=== PATIENT | male | born 1960 | race Caucasian/White ===

== ENCOUNTER 2017-11-04 10:46 | Emergency (ER) | payer MEDICAID ==
[~2017-11-04] VITALS: Ht 172.7 cm; Wt 79.0 kg
[2017-11-04] MEDS ORDERED: CYCL-1 PO (11:49)
[2017-11-04] MEDS ORDERED: ketorolac trometh inj. 60 MG/2 ML VIAL IM ONE (12:00)
[2017-11-04 13:08] VITALS: BP 136/72
== END 2017-11-04 13:10 | disposition home or self-care (01) ==
LOC: ER 10:47
DX: S76.311A Strain of muscle, fascia and tendon of the posterior muscle group at thigh level, right thigh, initial encounter (principal); F12.90 Cannabis use, unspecified, uncomplicated; Z79.899 Other long term (current) drug therapy; X50.1XXA Overexertion from prolonged static or awkward postures, initial encounter; Y93.89 Activity, other specified; Y92.89 Other specified places as the place of occurrence of the external cause; Y99.8 Other external cause status
CPT/HCPCS: 29505; 72170; 96372; 99284; J1885

== ENCOUNTER 2025-03-12 09:41 | Emergency (ER) | payer MEDICARE, MEDICAID ==
[~2025-03-12] VITALS: Ht 172.7 cm; Wt 89.3 kg
[~2025-03-12 09:41] MED LIST: CYCL-1 PO
--- NOTE | 2025-03-12 10:42 | Physician Documentation ---
History of Present Illness ~ Chief Complaint: Groin Pain Stated Complaint: PROSTATE COMPLICATIONS Time Seen by MD: 10:02 Primary Medical Doctor: meredith navarro Mode of Arrival: POV, Ambulatory HPI 65 years old male with history of suspected BPH presented to the ED due to concern of pain which started about one week ago on the left side of buttock. He reported it radiated to the left posterior thigh, positional, resolved without any pain medication. Patient have plan to travel that is why he wanted to expresses concern before his trip. He denied any fever or chills however reported occasional dysuria but not frequency not hematuria, penile discharge. Medication Reconciliation Allergies: Coded Allergies: No Known Allergies (Unverified , 03/12/25) Scheduled Doxycycline Hyclate (Doxycycline Hyclate), 100 MG PO BID Scheduled PRN Cyclobenzaprine* (Cyclobenzaprine*), 1 TABLET PO NIGHTLY PRN for muscle spasms Past Medical History Past Medical History: No Pertinent History Alcohol Use: None Drug Use: marijuana Review of Systems ROS The history of present illness included a review of system, which yielded relevant positives and negatives Physical Exam Vital Signs: Temperature: 97.5, Source: Temporal, Heart Rate: 90, Respiratory Rate: 14, BP: 164/98, Pulse Oximetry: 98, Weight: 89.300 Oxygen Flow Rate: 0 Physical Exam General: Awake and Alert, no acute distress. HEENT: Conjunctiva pink, Sclera clear, Mucus Membranes moist Neck: Supple without masses and tenderness. Resp: Lungs clear to auscultation bilaterally. Heart: Regular Rate and rhythm, normal S1 and S2 Abdomen: Soft and non tender Extremities: No cyanosis,clubbing or edema. Skin: Warm and Dry. Neurological: Speech is clear, alert, and oriented x 4, no gross neurological deficits Progress Results/Orders Results/Orders Completed Orders - CHRISTY LAKHANI, NOE Cbc/Diff (03/12/25 10:32) PBNP (03/12/25 10:32) Ua W/Microscopic, Cult If Ind (03/12/25 10:36) Add On Test (03/12/25 10:58) BMP (03/12/25 10:51) Vital Signs 03/12/25 03/12/25 09:46 10:25 Temp 97.5 Pulse 90 Resp 16 14 B/P (MAP) 164/98 Pulse Ox 98 O2 Flow Rate 0 Laboratory Tests Test 03/12/25 10:36 03/12/25 10:51 Urine Specimen Description Cln catch midstream Urine Color Yellow Urine Clarity Clear Urine pH 6.0 Urine Specific [place] 1.025 Urine Protein Negative Urine Glucose (UA) Negative Urine Ketones Negative Urine Occult Blood Trace-intact Urine Nitrite Negative Urine Bilirubin Negative Urine Urobilinogen 0.2 Urine Leukocyte Esterase Negative Urine RBC None seen Urine WBC 0-4 Urine Squamous Epithelial Cells Few Urine Bacteria Few Urine Hyaline Casts 0-3 Urine Mucus Few Urine Culture Indicated Not ind Volume Urine Centrifuged 10 ml Urine Comment White Blood Count 5.6 Red Blood Count 4.95 Hemoglobin 15.3 Hematocrit 42.6 Mean Corpuscular Volume 86.0 Mean Corpuscular Hemoglobin 30.9 Mean Corpuscular Hemoglobin Concent 35.9 Red Cell Distribution Width 13.5 Platelet Count 212 Mean Platelet Volume 7.6 Neutrophils (%) (Auto) 75.7 H Lymphocytes (%) (Auto) 16.3 L Monocytes (%) (Auto) 5.8 Eosinophils (%) (Auto) 1.6 Basophils (%) (Auto) 0.6 Neutrophils # (Auto) 4.2 Lymphocytes # (Auto) 0.9 L Monocytes # (Auto) 0.3 Eosinophils # (Auto) 0.1 Basophils # (Auto) 0.0 CBC Comment Sodium Level 144 Potassium Level 3.9 Chloride Level 108 H Carbon Dioxide Level 26.7 Anion Gap 9 Blood Urea Nitrogen 21 H Creatinine 0.84 Estimated GFR/1.73 m2 > 90 BUN/Creatinine Ratio 25.0 H Glucose Level 99 Calcium Level 8.8 Pro-B-Type Natriuretic Peptide 145 H Albumin 4.5 Chemistry Comments Medical Decision Making Additional information obtaine: N/A Findings 65 years old male presented to the ED due to pain in the left side of the buttock/perineal area she has positional and radiated to the back of thigh and resolved without any intervention. Urinary frequency also reported. Differential diagnosis; UTI, prostatitis, epididymitis, nephrolithiasis, hernia, sciatica Urinary Diff Dx:Considerations: Include: Epididymitis, Renal failure, UTI Genital Diff Dx:Considerations: Include: Inguinal hernia Departure Disposition: HOME / SELF CARE / HOMELESS Impression: Primary Impression: Dysuria Condition: Stable Additional Instructions: Please take medication as directed, follow up with your primary care doctor, return to the ED if your symptoms getting worse. Referrals: NO PRIMARY CARE PROVIDER (PCP) Prescriptions Doxycycline Hyclate (Doxycycline Hyclate) 100 Mg Tablet. 100 MG PO BID for 14 Days, #28 TAB Prov: CHRISTY LAKHANI, RES 03/12/25 Signature Scribe Signature: No scribe Attestation: The resident attestation: I examined the patient and discussed the plan with attending physician CHRISTY Sinclair, RES Mar 12, 2025 10:42
[2025-03-12 10:48] LABS: LEUKOCYTE ESTERASE ,URINE NEGATIVE (Neg); NITRITES, URINE NEGATIVE (Neg); OCCULT BLOOD,URINE TRACE-INTACT (Neg); UA COLLECTION TYPE CLN CATCH MIDSTREAM
[2025-03-12 11:05] LABS: MEAN PLATELET VOLUME 7.6 FL (7.4-10.4); RED CELL DISTRIBUTION WIDTH 13.5 % (11.5-14.5)
[2025-03-12 11:06] LABS: MUCUS STRANDS FEW /LPF (Neg); SQUAMOUS EPITHELIAL CELL,UR FEW /LPF (FEW)
[2025-03-12 11:07] LABS: HYALINE CASTS 0-3 /LPF (NEGATIVE)
[2025-03-12 11:24] LABS: CREATININE 0.84 MG/DL (0.60-1.10); PRO BRAIN NATRIURETIC PEPTIDE 145 PG/ML (0-125); TOTAL CARBON DIOXIDE 26.7 MMOL/L (24-32); eCRCL 85 ML/MIN; eGFR > 90 ML/MIN
[2025-03-12] MEDS ORDERED: DOXY-243 PO (12:44)
[2025-03-12 12:52] VITALS: BP 160/90; PULSE 87; RESP 16; TEMP 98; O2SAT 98
== END 2025-03-12 12:53 | disposition home or self-care (01) ==
LOC: ER 09:42
DX: R30.0 Dysuria (principal); F12.90 Cannabis use, unspecified, uncomplicated
CPT/HCPCS: 36415; 80048; 81001; 83880; 85025; 99283